=== PATIENT | male | born 1970 | race Asian ===

== ENCOUNTER 2023-01-25 10:15 | Outpatient (CLI) | payer OTHER | END 2023-02-14 23:59 | disposition home or self-care (01) | LOC: MRD 10:15 | PROVIDERS: ATTEND Thoracic Surgery (Cardiothoracic Vascular Surgery) | DX: D35.02 Benign neoplasm of left adrenal gland (principal); J98.11 Atelectasis; M25.78 Osteophyte, vertebrae; M48.02 Spinal stenosis, cervical region; J03.90 Acute tonsillitis, unspecified; R20.0 Anesthesia of skin | CPT/HCPCS: 70490; 71250 ==